=== PATIENT | male | born 1960 | race Caucasian/White ===

== ENCOUNTER 2020-03-05 09:57 | Emergency (ER) | payer BC, SELFPAY ==
[2020-03-05 10:05] VITALS: BP 180/102; PULSE 61; RESP 16; TEMP 36.6; O2SAT 99
--- NOTE | 2020-03-05 10:37 | ED.SKABFB ---
HPI - Skin/Abscess/Foreign Bdy General Chief complaint: Skin/Abscess/Foreign Body Stated complaint: piece of wood under left ring finger Time Seen by Provider: 03/05/20 10:10 Source: patient Mode of arrival: ambulatory Limitations: no limitations History of Present Illness HPI narrative: Samuel Roland is a 59 yo male with a PMH of hypothyroid, HTN, high cholesterol, hx of stent placement, who comes to express care with splinter under L third finger. Got it off bannister last night at 9P- has done nothing too try and remove it. He has not tried removing his has he soaked his hand; pain with palpitation oversight Related Data Home Medications Medication Instructions Recorded Confirmed atorvastatin [Lipitor] 40 mg PO DAILY 03/05/20 03/05/20 clopidogrel [Plavix] 75 mg PO DAILY 03/05/20 03/05/20 levothyroxine 125 mcg PO DAILY 03/05/20 03/05/20 lisinopril 40 mg PO DAILY 03/05/20 03/05/20 metoprolol tartrate 50 mg PO Q12H 03/05/20 03/05/20 Allergies Allergy/AdvReac Type Severity Reaction Status Date / Time No Known Allergies Allergy Verified 03/05/20 10:18 Review of Systems Review of Systems: Narrative: CONSTITUTIONAL: Denies fever, chills, sweats. EYES: Denies visual changes, redness, discharge. ENT: Denies rhinorrhea, congestion, sore throat, otalgia. CARDIOVASCULAR: Denies chest pain, palpitations, edema. RESPIRATORY: Denies dyspnea, wheezing, cough GASTROINTESTINAL: Denies abdominal pain, nausea, vomiting, diarrhea. GENITOURINARY: Denies dysuria, hematuria, abnormal discharge SKIN: Denies rash or itching. Splinter under L fourth fingernail NEUROLOGIC: Denies numbness, or focal weakness. PSYCHIATRIC: Denies anxiety or depression. [facility] Past Medical History Medical History High cholesterol HTN (hypertension) Hypothyroid Surgical History Surgical History History of heart artery stent Family History Family History (Updated 03/05/20 @ 10:41 by Vilma Head CNP) Other Hypertension Social History Social History (Updated 03/05/20 @ 10:42 by Vilma Head CNP) Smoking packs per day: 1.5 Smoking cigarettes per day: 30.0 Smoking status: Current every day smoker Alcohol intake: current Comments At time of signature, I agree with nursing past medical, surgical, social and family history. There is no relevant family history pertinent to the presenting complaint. Exam Narrative: Exam Narrative: GENERAL: This is a well-nourished, well-developed patient, in mild distress. HEAD: normocephalic, atraumatic. EYES: Sclera clear/white. Vision is grossly intact. EARS: External ears normal, Hearing grossly intact. NOSE: External nose normal without nasal discharge, nares without redness, no rhinorrhea. THROAT: Mucous membranes moist, NECK: Neck supple, CARDIOVASCULAR: Regular rate and rhythm without murmurs, gallops, or rubs. RESPIRATORY: Clear to auscultation. Breath sounds equal bilaterally. No wheezes, rales, or rhonchi. GASTROINTESTINAL: Abdomen soft, SKIN: warm, intact with no suspicious lesions or rash, foreign body under L ring finger nail mild swelling of the finger, good cap refill, no other abrasion NEURO: awake, alert, and oriented to person, place and time. There were no obvious focal neurologic abnormalities. Steady gait EXTREMITIES: Normal range of motion. BACK: Nontender without deformity Course Course Emergency Course: Patient here for reports of a splinter under his left ring finger nail Attempted to remove with local block patient unable to tolerate probing and unable to grasp objects to extract-sent to [facility] to try to get it removed. Discussed with JESSENIA Torres; patient unable to tolerate discomfort and unable to administer drugs on site since none available -patient will need tetanus immunization also Vital Signs Vital signs: Vital Signs Temperature 9
== END 2020-03-05 12:06 | disposition short-term general hospital (02) ==
PROVIDERS: Emergency Provider Nurse Practitioner; PCP Internal Medicine
DX: S61.243A Puncture wound with foreign body of left middle finger without damage to nail, initial encounter (principal); W45.8XXA Other foreign body or object entering through skin, initial encounter; F17.210 Nicotine dependence, cigarettes, uncomplicated; E78.00 Pure hypercholesterolemia, unspecified; I10 Essential (primary) hypertension; E03.9 Hypothyroidism, unspecified; Z95.5 Presence of coronary angioplasty implant and graft; Z79.01 Long term (current) use of anticoagulants
CPT/HCPCS: 99212; G0463

== ENCOUNTER 2020-03-05 13:57 | Emergency (ER) | payer BC, SELFPAY ==
--- NOTE | ~2020-03-05 | XR_ITS ---
EXAMINATION: XR finger 4th LT min 2V DATE: 03/05/2020 14:36 INDICATION: Foreign body in the nail TECHNIQUE: Dorsal palmar, lateral and 2 oblique views of the left fourth digit were obtained COMPARISON: None FINDINGS: Alignment is normal. No fracture. Joint spaces are normal. Soft tissue swelling about the metacarpoph alangeal and fourth proximal interphalangeal joints. No radiopaque or radiolucent foreign bodies iden tified. IMPRESSION: 1. Soft tissue swelling centered at the base of the fourth digit. No osseous abnormality or evident f oreign body. Of note wood or other organic foreign bodies can be similar in density to soft tissue an d may be occult on plain radiographs. Reviewed, dictated and finalized at location B. IMPRESSION: 1. Soft tissue swelling centered at the base of the fourth digit. No osseous ab normality or evident foreign body. Of note wood or other organic foreign bodies can be similar in density to soft tissue and may be occult on plain radiograph s.
[2020-03-05 14:06] VITALS: BP 174/91; PULSE 67; RESP 18; TEMP 36.3; O2SAT 99
--- NOTE | 2020-03-05 14:15 | ED.WOUNDLAC ---
HPI - Wound/Laceration General Chief Complaint: Wound/Laceration Stated Complaint: FB L RING FINGER Time Seen by Provider: 03/05/20 14:05 Source: patient Mode of arrival: ambulatory Limitations: no limitations History of Present Illness HPI narrative: This is a 59 year old male that presents to the ER for left 4th finger foreign body. Reports he has a splinter under the nail that he sustained last night off the banister. Reports he was seen in urgent care for this and they were unable to remove foreign body, so he was sent here for further evaluation. He is not up-to-date on his tetanus vaccine. Denies fever. Related Data Home Medications Medication Instructions Recorded Confirmed atorvastatin [Lipitor] 40 mg PO DAILY 03/05/20 03/05/20 clopidogrel [Plavix] 75 mg PO DAILY 03/05/20 03/05/20 levothyroxine 125 mcg PO DAILY 03/05/20 03/05/20 lisinopril 40 mg PO DAILY 03/05/20 03/05/20 metoprolol tartrate 50 mg PO Q12H 03/05/20 03/05/20 Allergies Allergy/AdvReac Type Severity Reaction Status Date / Time No Known Allergies Allergy Verified 03/05/20 14:09 Review of Systems Review of Systems: Narrative: CONSTITUTIONAL: Denies fever SKIN: Reports foreign body All systems reviewed & are unremarkable except as noted in HPI and below PMFSH Past Medical History Medical History (Updated 03/05/20 @ 15:56 by Yaa Torres PA-C) High cholesterol History of coronary artery disease HTN (hypertension) Hypothyroid Surgical History Surgical History History of heart artery stent Family History Family History (Updated 03/05/20 @ 10:41 by Vilma Head CNP) Other Hypertension Social History Social History (Updated 03/05/20 @ 10:42 by Vilma Head CNP) Smoking packs per day: 1.5 Smoking cigarettes per day: 30.0 Smoking status: Current every day smoker Alcohol intake: current Exam Narrative: Exam Narrative: GENERAL: Well-appearing, well-nourished, and in no acute distress. HEAD: Normocephalic, atraumatic. EYES: EOMI. EXTREMITIES: Normal range of motion. No edema. Left 4th finger nail bed with bruising, tender to palpation SKIN: Warm, dry, no rash. NEURO: No focal deficits. Alert and oriented x3. PSYCH: Normal mood and affect Course Vital Signs Vital signs: Vital Signs Temperature 97.3 F L 03/05/20 14:06 Pulse Rate 67 03/05/20 14:06 Respiratory Rate 18 03/05/20 14:06 Blood Pressure 174/91 H 03/05/20 14:06 Pulse Oximetry 99 03/05/20 14:06 Temperature 97.3 F L 03/05/20 14:06 Pulse Rate 67 03/05/20 14:06 Respiratory Rate 18 03/05/20 14:06 Blood Pressure 174/91 H 03/05/20 14:06 Pulse Oximetry 99 03/05/20 14:06 Procedures Foreign Body Removal Foreign Body #1: Foreign Body Removal Date: 03/05/20 Foreign Body Removal Time: 15:51 Site: left and hand Description of foreign body: other (Splinter) Technique: removal with forceps Confirmed by:: direct visualization Complications: none Post-procedure exam: awake, alert Neurovascular: no change from pre-procedure Foreign Body Removal Narrative: Splinter removed from the left fourth finger without complications MDM - Wound/Laceration MDM Narrative Medical decision making narrative: Patient presents to the emergency department for foreign body to left fourth finger sustained last night. Left fourth finger x-ray is without evidence of foreign body or any osseous abnormalities. Patient updated on tetanus vaccine. Splinter was successfully removed. Patient will be placed on prophylactic oral antibiotics. He was educated on wound care. He is to follow-up with primary care doctor. He was given warnings to return to the ER Imaging Data Radiologist's impression: ITS Impressions Finger X-Ray 03/05/20 14:44 IMPRESSION: 1. Soft tissue swelling centered at the base of the fourth digit. No osseous a
[2020-03-05] MEDS: TETANUS,DIPHTHERIA,AC PERTUSSIS ADULT (0.5 ML) BOOSTRIX IM (14:28)
== END 2020-03-05 16:20 | disposition home or self-care (01) ==
PROVIDERS: Emergency Provider Emergency Medicine; PCP Internal Medicine
DX: S60.455A Superficial foreign body of left ring finger, initial encounter (principal); E78.00 Pure hypercholesterolemia, unspecified; I25.10 Atherosclerotic heart disease of native coronary artery without angina pectoris; I10 Essential (primary) hypertension; E03.9 Hypothyroidism, unspecified; Z23 Encounter for immunization; Z95.5 Presence of coronary angioplasty implant and graft; Z79.02 Long term (current) use of antithrombotics/antiplatelets; F17.210 Nicotine dependence, cigarettes, uncomplicated; W45.8XXA Other foreign body or object entering through skin, initial encounter
CPT/HCPCS: 73140; 90471; 90715; 99283